=== PATIENT | female | born 1950 | race Caucasian/White ===

== ENCOUNTER 2019-06-19 09:33 | Outpatient (CLI) | payer MEDICARE, BC ==
--- NOTE | 2019-06-19 10:42 | CT ---
CT PULMONARY LUNG SCAN PERFORMED WITHOUT CONTRAST ENHANCEMENT: Date: 06/19/2019 HISTORY: Patient smoked for 25-30 years; quit 18 years ago. COMPARISON: 11/13/2007 study. FINDINGS: The lungs are clear of any infiltrative lung process. A tiny pleural based nodule better appreciated on coronal image 93 in the left upper lobe is noted. No other definitive nodules. Thoracic aorta is normal in caliber. A hiatal hernia is present. The visualized liver parenchyma show s a hypodensity most likely a cyst. IMPRESSION: Lung-RADS Category 2 - Benign behavior or appearance. Annual follow-up is recommended. POS: [facility]
== END 2019-06-19 09:34 | disposition home or self-care (01) ==
LOC: CT 09:33
PROVIDERS: ATTEND Internal Medicine
DX: Z12.2 Encounter for screening for malignant neoplasm of respiratory organs (principal); Z87.891 Personal history of nicotine dependence
CPT/HCPCS: G0297

== ENCOUNTER 2020-07-07 12:21 | Outpatient (CLI) | payer MEDICARE, BC | END 2020-07-07 12:22 | disposition home or self-care (01) | LOC: BICCT 12:21 | PROVIDERS: ATTEND Internal Medicine | DX: Z12.2 Encounter for screening for malignant neoplasm of respiratory organs (principal); Z87.891 Personal history of nicotine dependence | CPT/HCPCS: 71271 ==

== ENCOUNTER 2021-03-27 13:25 | Outpatient (CLI) | payer MEDICARE, BC | END 2021-03-27 13:26 | disposition home or self-care (01) | LOC: BICULT 13:25 | PROVIDERS: ATTEND Internal Medicine | DX: M25.562 Pain in left knee (principal); M25.462 Effusion, left knee | CPT/HCPCS: 76999 ==

== ENCOUNTER 2022-03-13 12:15 | Outpatient (CLI) | payer MEDICARE | END 2022-03-13 12:16 | disposition home or self-care (01) | LOC: BICCT 12:15 | PROVIDERS: ATTEND Internal Medicine | DX: Z12.2 Encounter for screening for malignant neoplasm of respiratory organs (principal); Z13.820 Encounter for screening for osteoporosis; Z87.891 Personal history of nicotine dependence | CPT/HCPCS: 71271; 77080 ==

== ENCOUNTER 2022-08-02 13:28 | Outpatient (CLI) | payer MEDICARE, BC | END 2022-08-02 13:29 | disposition home or self-care (01) | LOC: BICMAMMO 13:28 | PROVIDERS: ATTEND Internal Medicine | DX: Z12.31 Encounter for screening mammogram for malignant neoplasm of breast (principal) | CPT/HCPCS: 77063; 77067 ==

== ENCOUNTER 2022-08-27 12:35 | Outpatient (CLI) | payer MEDICARE, BC | END 2022-08-27 12:36 | disposition home or self-care (01) | LOC: SCSMRI 12:35 | PROVIDERS: ATTEND Nurse Practitioner Family | DX: S32.000D Wedge compression fracture of unspecified lumbar vertebra, subsequent encounter for fracture with routine healing (principal); M47.816 Spondylosis without myelopathy or radiculopathy, lumbar region; M46.06 Spinal enthesopathy, lumbar region; Z98.890 Other specified postprocedural states | CPT/HCPCS: 72120; 72148 ==

== ENCOUNTER 2022-08-29 14:22 | Outpatient (CLI) | payer MEDICARE, BC | END 2022-08-29 14:23 | disposition home or self-care (01) | LOC: ULT 14:22 | PROVIDERS: ATTEND Internal Medicine | DX: M79.605 Pain in left leg (principal); M71.22 Synovial cyst of popliteal space [Baker], left knee | CPT/HCPCS: 76882 ==

== ENCOUNTER 2024-05-26 08:18 | Outpatient (CLI) | payer MEDICARE, BC ==
[2024-05-26] MEDS ORDERED: Regadenoson 0.4 MG/5 ML SYRINGE ONE (10:28)
== END 2024-05-26 08:19 | disposition home or self-care (01) ==
LOC: NM 08:18
PROVIDERS: ATTEND Internal Medicine
DX: R06.00 Dyspnea, unspecified (principal)
CPT/HCPCS: 78452; 93017; A9502; J2785 ×2

== ENCOUNTER 2024-10-14 12:52 | Outpatient (CLI) | payer MEDICARE, BC ==
[2024-10-14 14:57] LABS: #Basophils 0.03 10x3/uL (0.0-0.2); #Eosinophils 0.11 10x3/uL (0.0-0.7); #Monocytes 0.57 10x3/uL (0.11-0.59); #Neutrophils 5.43 10x3/uL (1.40-6.50); %Basophils 0.4 % (0.0-1.0); %Eosinophils 1.4 % (0.0-10.0); %Lymphocytes 22.4 % (21.0-51.0); %Monocytes 7.2 % (0.0-10.0); %Neutrophils 68.3 % (42.0-75.0); Hemoglobin 13.6 g/dL (12.0-16.0); Mean Corpuscular HGB CONC 31.6 g/dL (32.0-36.0); Mean Corpuscular Hemoglobin 28.9 pg (27.0-31.0); Mean Corpuscular Volume 91.5 fL (78.0-98.0); Platelet Count 367 10x3/uL (130-400); RBC Distribution Width 13.8 % (11.5-14.5); White Blood Cell (WBC) Count 7.94 10x3/uL (4.8-10.8)
[2024-10-14 15:11] LABS: Anion Gap 12 mmol/L (10-20); BUN (Urea Nitrogen) 21 mg/dL (9.8-20.1); Calc. Creatinine Clearance 0 mL/min (70-130); Calcium 9.4 mg/dL (7.8-10.44); Carbon Dioxide 30 mmol/L (23-31); Chloride 100 mmol/L (98-107); Estimated GFR 70; Glucose 92 mg/dL (83-110); Potassium 3.8 mmol/L (3.5-5.1); Sodium 138 mmol/L (136-145)
[2024-10-14 15:15] LABS: Prothrombin Time 13.3 sec (12.0-14.7)
[2024-10-14 18:04] LABS: Bacteria/HPF None Seen HPF (None Seen); Bilirubin Negative (Negative); Blood, Urine Negative (Negative); Clarity Clear (Clear); Glucose, Urine (Dipstick) Normal (Negative); Ketone, Urine Negative (Negative); Leukocyte Negative Leu/uL (Negative); Nitrite Negative (Negative); Protein, Urine (Dipstick) Negative (Neg-Trace); RBC/HPF 0-3 HPF (0-3); Specific Gravity, Urine 1.025 (1.002-1.036); Squamous Epithelial 0-3 HPF (0-3); WBC/HPF 0-3 HPF (0-3)
== END 2024-10-14 12:53 | disposition home or self-care (01) ==
LOC: LABBT 12:52
PROVIDERS: ATTEND Orthopaedic Surgery
DX: Z01.818 Encounter for other preprocedural examination (principal); M17.12 Unilateral primary osteoarthritis, left knee; K44.9 Diaphragmatic hernia without obstruction or gangrene; M41.9 Scoliosis, unspecified
CPT/HCPCS: 71046; 80048; 81001; 85025; 85610; 87081; 93005; 93010